=== PATIENT | female | born 1990 | race Caucasian/White ===

== ENCOUNTER 2020-03-28 04:38 | Observation (INO) ==
[2020-03-28] MEDS ORDERED: Ondansetron 4 MG/2 ML VIAL IVP ONE ×2 (05:00→06:45)
[2020-03-28] MEDS ORDERED: Isovue-370 500 ML BOTTLE IVP ONE (05:00)
[2020-03-28] MEDS ORDERED: *HR* FentaNYL (PF) 100 MCG/2 ML VIAL IVP ONE ×2 (05:00→07:35)
[2020-03-28 05:20] LABS: Bilirubin,Urine Negative (Negative); Blood,Urine Negative (Negative); Clarity,Urine Clear (Clear); Color,Urine Dark-Yellow (Yellow); Glucose,Urine (UA) Normal (Normal); Ketones,Urine Negative (Negative); Leukocyte Esterase,Urine Negative (Negative); Nitrite,Urine Negative (Negative); Protein,Urine Trace mg/dL (Neg-Trace); Urobilinogen,Urine Normal (Normal)
[2020-03-28 05:52] LABS: Basophils % 0.4 %; Eosinophils # 0.1 K/mcL (0.0-0.6); Eosinophils % 1.1 %; Hematocrit 37.7 % (35.3-44.9); Hemoglobin 12.5 g/dL (11.5-15.4); Immature Granulocytes % 0.2 % (0-4); Immature Platelets 3.9 % (1.1-6.1); Lymphocytes # 1.2 K/mcL (0.6-4.6); Lymphocytes % 12.8 %; Mean Corpuscular HGB Conc 33.2 g/dL (31.6-35.5); Mean Corpuscular Hemoglobin 29.1 pg (28.0-33.3); Mean Corpuscular Volume 87.7 fL (83.0-100.0); Mean Platelet Volume 10.7 fL (9.4-12.4); Monocytes # 0.6 K/mcL (0.0-1.3); Monocytes % 6.8 %; Neutrophils # 7.4 K/mcL (1.6-8.9); Platelet Count 119 K/mcL (140-400); Red Cell Distribution Width 12.3 % (11.5-14.5); Segmented Neutrophils % 78.7 %; White Blood Count 9.4 K/mcL (4.3-11.1)
[2020-03-28 06:06] LABS: Alanine Aminotransferase 10 Units/L (7-52); Albumin 4.3 g/dL (3.5-5.7); Albumin/Globulin Ratio 1.5 (1.1-2.2); Alkaline Phosphatase 53 Units/L (34-104); Aspartate Amino Transferase 17 Units/L (13-39); BUN/Creatinine Ratio 11 (6-26); Bilirubin,Direct 0.1 mg/dL (0.0-0.2); Bilirubin,Indirect 0.6 mg/dL (0.0-1.0); Bilirubin,Total 0.7 mg/dL (0.3-1.0); Blood Urea Nitrogen 9 mg/dL (6-20); Calcium 9.1 mg/dL (8.6-10.3); Carbon Dioxide 26 mEq/L (23-29); Chloride 106 mEq/L (98-107); Globulin 2.8 g/dL (2.4-3.5); Glucose 108 mg/dL (70-105); Lipase 18 Units/L (11-82); Osmolality,Calculated 281 (280-300); Potassium 3.8 mEq/L (3.5-5.1); Sodium 136 mEq/L (136-145); Total Protein 7.1 g/dL (6.4-8.9); eGFR For African Americans > 60 (> 60); eGFR For Non-African Americans > 60 (> 60)
[2020-03-28] MEDS ORDERED: Piperacillin/Tazobactam 3.375 GM in 0.9 % Sodium Chloride Mini Bag 100 ML IVPB ONE (06:42)
[2020-03-28] MEDS ORDERED: Morphine Sulfate 2 MG/ML SYRINGE IVP ONE (06:45)
[2020-03-28] MEDS ORDERED: Ringers Solution, Lactated 1,000 ML IVC SCH (07:15)
[2020-03-28] MEDS ORDERED: Ondansetron 4 MG/2 ML VIAL IVP PRN ×2 (07:15→11:34)
[2020-03-28] MEDS ORDERED: Acetaminophen IV 1,000 MG/100 ML BAG IVPB ONE (07:15)
[2020-03-28] MEDS ORDERED: *HR* Midazolam HCl 2 MG/2 ML VIAL ONE (07:23)
[2020-03-28] MEDS ORDERED: Dexamethasone 4 MG/ML VIAL ONE (07:23)
[2020-03-28] MEDS ORDERED: *HR* Rocuronium Bromide 50 MG/5 ML VIAL ONE (07:23)
[2020-03-28] MEDS ORDERED: *HR* Propofol 200 MG/20 ML VIAL IVP ONE (07:23)
[2020-03-28] MEDS ORDERED: *HR* FentaNYL (PF) 100 MCG/2 ML VIAL ONE ×2 (07:23→10:20)
[2020-03-28] MEDS ORDERED: Lidocaine -MPF 2% 2 ML VIAL ONE (07:23)
[2020-03-28] MEDS ORDERED: Ondansetron 4 MG/2 ML VIAL ONE (07:23)
[2020-03-28] MEDS ORDERED: Lidocaine HCL 4 ML Topical Solution (Laryng-O-Jet Kit Sterile Pak) TP ONE (07:23)
[2020-03-28] MEDS ORDERED: *HR* OxyCODONE Immed Rel 5 MG TABLET PO PRN (07:30)
[2020-03-28] MEDS ORDERED: *HR* HYDROmorphone PF 0.5 MG/0.5 ML SYRINGE IVP PRN (07:30)
[2020-03-28 08:51] LABS: Adenovirus Not Detected (Not Detect); Bordetella Pertussis Not Detected (Not Detect); Chlamydophila pneumoniae Not Detected (Not Detect); Coronavirus 229E Not Detected (Not Detect); Coronavirus HKU1 Not Detected (Not Detect); Coronavirus NL63 Not Detected (Not Detect); Coronavirus OC43 Not Detected (Not Detect); Human Metapneumovirus Not Detected (Not Detect); Human Rhinovirus/Enterovirus Not Detected (Not Detect); Influenza A Subtype 2009 H1 Not Detected (Not Detect); Influenza B Not Detected (Not Detect); Mycoplasma pneumoniae Not Detected (Not Detect); Parainfluenza Virus 1 Not Detected (Not Detect); Parainfluenza Virus 2 Not Detected (Not Detect); Parainfluenza Virus 3 Not Detected (Not Detect); Parainfluenza Virus 4 Not Detected (Not Detect); Respiratory Syncytial Virus Not Detected (Not Detect); SARS-CoV-2 Not Detected (Not Detect)
[2020-03-28] MEDS ORDERED: Pantoprazole 40 MG VIAL IVP SCH (09:00)
[2020-03-28] MEDS ORDERED: *HR* Heparin 5,000 UNIT/ML VIAL SQ SCH (09:00)
[2020-03-28] MEDS ORDERED: EPHEDrine 50 MG/ML VIAL ONE (09:48)
[2020-03-28] MEDS ORDERED: Neostigmine Methylsulfate 3 MG/3 ML SYRINGE ONE (10:29)
[2020-03-28] MEDS ORDERED: Ketorolac 30 MG/ML VIAL ONE (10:37)
[2020-03-28] MEDS ORDERED: *HR* OxyCODONE/APAP 5/325 TABLET PO PRN (11:34)
[2020-03-28] MEDS: Ketorolac 15 MG/ML VIAL IVP SCH ×2 (12:11→18:13)
[2020-03-28] MEDS: Ringers Solution, Lactated 1,000 ML IVC SCH ×2 (12:11→21:13)
[2020-03-28] MEDS ORDERED: Piperacillin/Tazobactam 3.375 GM in 0.9 % Sodium Chloride Mini Bag 100 ML IVPB SCH (14:00)
[2020-03-28] MEDS: Piperacillin/Tazobactam 3.375 GM in 0.9 % Sodium Chloride Mini Bag 100 ML IVPB SCH (15:08)
[2020-03-28] MEDS: *HR* Heparin 5,000 UNIT/ML VIAL SQ SCH ×2 (15:08→21:39)
[2020-03-29] MEDS: Ketorolac 15 MG/ML VIAL IVP SCH ×2 (00:39→06:37)
[2020-03-29] MEDS: Piperacillin/Tazobactam 3.375 GM in 0.9 % Sodium Chloride Mini Bag 100 ML IVPB SCH ×2 (00:40→07:48)
[2020-03-29] MEDS: Ringers Solution, Lactated 1,000 ML IVC SCH (05:17)
[2020-03-29 06:21] LABS: Basophils % 0.2 %; Red Cell Distribution Width 12.4 % (11.5-14.5)
[2020-03-29 06:23] LABS: Hematocrit 33.1 % (35.3-44.9); Hemoglobin 10.9 g/dL (11.5-15.4); Immature Granulocytes % 0.2 % (0-4); Immature Platelets 3.4 % (1.1-6.1); Lymphocytes # 1.1 K/mcL (0.6-4.6); Lymphocytes % 11.1 %; Mean Corpuscular HGB Conc 32.9 g/dL (31.6-35.5); Mean Corpuscular Hemoglobin 29.2 pg (28.0-33.3); Mean Corpuscular Volume 88.7 fL (83.0-100.0); Mean Platelet Volume 10.8 fL (9.4-12.4); Monocytes # 0.7 K/mcL (0.0-1.3); Monocytes % 7.4 %; Neutrophils # 8.1 K/mcL (1.6-8.9); Platelet Count 100 K/mcL (140-400); Red Blood Count 3.73 M/mcL (3.82-4.97); Segmented Neutrophils % 81.1 %
[2020-03-29] MEDS: *HR* Heparin 5,000 UNIT/ML VIAL SQ SCH (06:37)
[2020-03-29 07:15] VITALS: BP 97/59
[2020-03-29] MEDS ORDERED: Aspirin Enteric Coated 81 MG Tablet PO SCH (09:00)
[2020-03-29] MEDS ORDERED: Pantoprazole 40 MG VIAL IVP SCH (09:00)
== END 2020-03-29 11:32 | disposition home or self-care (01) ==
LOC: EMEROOARM 04:38 → 3ANU 04:38 → EMEROOARM 09:10
PROVIDERS: ADMIT Surgery; ATTEND Surgery